=== PATIENT | male | born 1970 | race Caucasian/White ===

== ENCOUNTER 2019-04-22 19:08 | Observation (INO) ==
[2019-04-22 19:40] LABS: Basophils % 0.6 %; Eosinophils # 0.1 K/mcL (0.0-0.6); Eosinophils % 1.5 %; Hematocrit 37.2 % (37.5-50.1); Hemoglobin 11.8 g/dL (12.9-16.9); Immature Granulocytes % 0.8 % (0-4); Lymphocytes # 1.9 K/mcL (0.6-4.6); Lymphocytes % 29.4 %; Mean Corpuscular HGB Conc 31.7 g/dL (31.6-35.5); Mean Corpuscular Hemoglobin 27.2 pg (28.0-33.3); Mean Corpuscular Volume 85.7 fL (83.0-100.0); Mean Platelet Volume 11.5 fL (9.4-12.4); Monocytes # 0.5 K/mcL (0.0-1.3); Monocytes % 7.6 %; Neutrophils # 3.9 K/mcL (1.6-8.9); Platelet Count 160 K/mcL (140-400); Red Blood Count 4.34 M/mcL (4.19-5.50); Red Cell Distribution Width 15.3 % (11.5-14.5); Segmented Neutrophils % 60.1 %; White Blood Count 6.5 K/mcL (4.3-11.1)
[2019-04-22 19:58] LABS: INR 1.1; Prothrombin Time 12.9 Seconds (9.4-12.1)
[2019-04-22 20:00] LABS: Activated Partial Thrombo Time 27.5 Seconds (26.0-36.0)
[2019-04-22] MEDS ORDERED: 0.9 % Sodium Chloride 1,000 ML IVC ONE (20:01)
[2019-04-22 20:02] LABS: BUN/Creatinine Ratio 22 (6-26); Blood Urea Nitrogen 18 mg/dL (6-20); Calcium 8.5 mg/dL (8.6-10.3); Carbon Dioxide 26 mEq/L (23-29); Chloride 97 mEq/L (98-107); Glucose 402 mg/dL (70-105); Magnesium 1.6 mg/dL (1.6-2.6); Osmolality,Calculated 289 (280-300); Potassium 4.3 mEq/L (3.5-5.1); Sodium 130 mEq/L (136-145); Troponin I < 0.03 ng/mL (< 0.04); eGFR For African Americans > 60 (> 60); eGFR For Non-African Americans > 60 (> 60)
[2019-04-22] MEDS ORDERED: Nitroglycerin 0.4 MG TAB.SUBL SL PRN (20:14)
[2019-04-22] MEDS ORDERED: Aspirin 81 MG TAB.CHEW PO ONE (20:14)
[2019-04-22] MEDS ORDERED: Furosemide 40 MG/4 ML VIAL IVP ONE (20:16)
--- NOTE | 2019-04-22 20:49 | Emergency Department Note ---
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 use Diabetes mellitus complication status: with other specified complication Qualified Code(s): E11.69 - Type 2 diabetes mellitus with other specified complication Disposition: Admitted As Inpatient Time of Disposition: 20:54 Chest Pain HPI - General Chief Complaint: ED Chest Pain Stated Complaint: chest pain Time Seen by Provider: 04/22/19 19:09 Source: patient, EMS Mode of arrival: EMS Limitations: no limitations Vital Signs Reviewed: Yes Nursing Notes Reviewed: Yes - History of Present Illness HPI Narrative: 48M with PMHx of DM and HTN presents to the ER after sudden onset of chest pain at rest. Patient states he had not been feeling well for the day with some nausea and was getting ready to make himself a sandwich when he felt chest pressure all across his chest. Patient states he has felt this chest pain before and does come into the hospital. He used to be on nitroglycerin for chest pain but has been out of his prescription for a while. He is not short of breath but he did get diaphoretic with this and states the pain radiates down his left arm. He has not vomited. He has never had a heart attack before and does not think that he has undergone cardiac catheterization. He denies cough, congestion, abdominal pain, diarrhea, dysuria. Severity scale (1-10): 5 - Related Data Home Medications Medication Instructions Recorded Confirmed Aspirin [Lo-Dose Aspirin EC] 81 mg PO HS 11/05/17 07/22/18 Lisinopril [Zestril] 5 mg PO DAILY 11/05/17 07/22/18 Metformin HCl [Glucophage] 1,000 mg PO BID 11/05/17 07/22/18 Metoprolol [Lopressor] 25 mg PO BID 11/05/17 07/22/18 Omeprazole [PriLOSEC] 20 mg PO DAILY 11/05/17 07/22/18 Simvastatin [Zocor] 10 mg PO QPM 11/05/17 07/22/18 Furosemide [Lasix] 20 mg PO DAILY 02/28/18 07/22/18 Glimepiride [Amaryl] 2 mg PO BID 02/28/18 07/22/18 Naproxen 500 mg PO BID 02/28/18 07/22/18 SitaGLIPtin [Januvia] 100 mg PO DAILY 02/28/18 07/22/18 Allergies Allergy/AdvReac Type Severity Reaction Status Date / Time No Known Allergies Allergy Verified 02/05/19 14:49 All systems ED: reviewed and negative except as stated. Review of Systems: As Per HPI Constitutional: Denies: fever, chills, weakness Cardiovascular: Reports: chest pain. Denies: palpitations, dyspnea on exertion Respiratory: Denies: cough, dyspnea, wheezes Gastrointestinal: Reports: nausea. Denies: abdominal pain, vomiting Genitourinary: Denies: dysuria Musculoskeletal: Denies: back pain, neck pain Neurological: Denies: headache Endocrine: Reports: fatigue Chest Pain PMH - Past Medical History Medical history: Reports: diabetes, hypertension Psychiatric history: Reports: no psych history - Social History Smoking Status: Never smoker Alcohol use: Reports: none Drug use: Reports: none Physical Exam - General Limitations: no limitations General appearance: alert, in no apparent distress - Head Head exam: atraumatic, normocephalic - Eye Eye exam: Present: normal appearance, EOMI - Chest Chest inspection: Present: tenderness (mild tenderness to palpation over the left side of the chest ). Absent: rash - Respiratory Respiratory exam: Present: normal lung sounds bilaterally. Absent: wheezes - Cardiovascular Cardiovascular exam: Present: regular rate, normal rhythm - Abdominal Exam Abdominal exam: Present: soft, Non-Tender. Absent: distention, guarding, rebound, rigidity - Extremities Exam Extremities exam: Present: normal inspection. Absent: tenderness, pedal edema - Neurological Exam Neurological exam: Present: alert, oriented X3 - Psychiatric Psychiatric exam: Present: normal affect, normal mood - Skin Skin exam: Present: warm, dry, intact Course Vital Signs Temperature 99.8 F H 04/22/19 19:10 Pulse Rate 85 04/22/19 19:10 Respiratory Rate 18 04/22/19 19:10 Blood Pressure 190/94 04/22/19 19:10 O2 Sat by Pulse Oximetry 100 04/22/19 19:10 Temperature 99.8 F H 04/22/19 19:10 Pulse Rate 100 04/22/19 20:39 Respiratory Rate 18 04/22/19 20:39 Blood Pressure 167/105 04/22/19 20:39 O2 Sat by Pulse Oximetry 98 04/22/19 20:39 Oxygen Delivery Oxygen Delivery Room Air Chest Pain - MDM Narrative Medical decision making narrative: Pt presents with chest pain and elevated blood sugars in the 400s. We will obtain a cardiac workup and make sure the patient is not in DKA. Pt will receive nitro and aspirin. 2051 - Pts cardiac workup was negative but CXR shows some pulmonary vascular congestion. We will administer lasix and admit to the hospital for CHF exacerbation and trending of troponins. BNP has been ordered and is pending. Pt has been accepted by Dr. Alvarez. - Medical Records Medical records reviewed: Yes I reviewed the patient's medical records. - Lab Data Lab results reviewed: Yes I reviewed the patient's lab results. Result diagrams: 04/22/19 19:20 04/22/19 19:20 Lab Results 04/22/19 04/22/19 04/22/19 Range/Units 19:20 19:20 19:20 WBC 6.5 (4.3-11.1) K/mcL RBC 4.34 (4.19-5.50) M/mcL Hgb 11.8 L (12.9-16.9) g/dL Hct 37.2 L (37.5-50.1) % MCV 85.7 (83.0-100.0) fL MCH 27.2 L (28.0-33.3) pg MCHC 31.7 (31.6-35.5) g/dL RDW 15.3 H (11.5-14.5) % Plt Count 160 (140-400) K/mcL MPV 11.5 (9.4-12.4) fL Immature Gran % 0.8 (0-4) % Seg Neutrophils % 60.1 % Lymphocytes % 29.4 % Monocytes % 7.6 % Eosinophils % 1.5 % Basophils % 0.6 % Neutrophils # 3.9 (1.6-8.9) K/mcL Lymphocytes # 1.9 (0.6-4.6) K/mcL Monocytes # 0.5 (0.0-1.3) K/mcL Eosinophils # 0.1 (0.0-0.6) K/mcL Basophils # 0.0 (0.0-0.2) K/mcL PT 12.9 H (9.4-12.1) Seconds INR 1.1 APTT 27.5 (26.0-36.0) Seconds Sodium 130 L (136-145) mEq/L Potassium 4.3 (3.5-5.1) mEq/L Chloride 97 L (98-107) mEq/L Carbon Dioxide 26 (23-29) mEq/L BUN 18 (6-20) mg/dL Creatinine 0.82 (0.70-1.30) mg/dL Est GFR ( Amer) > 60 (> 60) Est GFR (Non-Af Amer) > 60 (> 60) BUN/Creatinine Ratio 22 (6-26) Glucose 402 H (70-105) mg/dL Calculated Osmolality 289 (280-300) Calcium 8.5 L (8.6-10.3) mg/dL Magnesium 1.6 (1.6-2.6) mg/dL Troponin I < 0.03 (< 0.04) ng/mL Beta-Hydroxybutyric Acd (0.02-0.27) mmol/L 04/22/19 Range/Units 19:20 WBC (4.3-11.1) K/mcL RBC (4.19-5.50) M/mcL Hgb (12.9-16.9) g/dL Hct (37.5-50.1) % MCV (83.0-100.0) fL MCH (28.0-33.3) pg MCHC (31.6-35.5) g/dL RDW (11.5-14.5) % Plt Count (140-400) K/mcL MPV (9.4-12.4) fL Immature Gran % (0-4) % Seg Neutrophils % % Lymphocytes % % Monocytes % % Eosinophils % % Basophils % % Neutrophils # (1.6-8.9) K/mcL Lymphocytes # (0.6-4.6) K/mcL Monocytes # (0.0-1.3) K/mcL Eosinophils # (0.0-0.6) K/mcL Basophils # (0.0-0.2) K/mcL PT (9.4-12.1) Seconds INR APTT (26.0-36.0) Seconds Sodium (136-145) mEq/L Potassium (3.5-5.1) mEq/L Chloride (98-107) mEq/L Carbon Dioxide (23-29) mEq/L BUN (6-20) mg/dL Creatinine (0.70-1.30) mg/dL Est GFR ( Amer) (> 60) Est GFR (Non-Af Amer) (> 60) BUN/Creatinine Ratio (6-26) Glucose (70-105) mg/dL Calculated Osmolality (280-300) Calcium (8.6-10.3) mg/dL Magnesium (1.6-2.6) mg/dL Troponin I (< 0.04) ng/mL Beta-Hydroxybutyric Acd 0.17 (0.02-0.27) mmol/L - Radiology Data Radiology results reviewed: Yes I reviewed the patient's radiology results. - EKG Data EKG attestation: Yes I reviewed and interpreted this EKG. EKG results narrative: EKG obtained at 1915 on 04/22/2019 Heart rate 87 bpm, FL interval 155, QRS duration 92, QT 358, QTC [address] segment elevations or depressions. No acute T-wave abnormalities. No significant changes when compared to previous EKG dated 02/28/2018. Heart Score - Score History: Moderately Suspicious EKG: Normal Age: 45-65 Risk Factors: Equal/Greater than 3 risk factor or history of atherosclerotic disease Troponin: Less than normal limit HEART Score Total: 4 Attestation Statement - Attestation Attestation: I, Shaun Benjamin, examined this patient and my medical decision-making was reviewed with the COOLER TENDER/PA/Advanced Practice Nurse/Resident Physician. I agree with the documented findings, disposition and treatment plan as described except to the extent set forth below. 48-year-old male presents emergency Department with concerns of acute onset chest pain. Patient states he had sternal chest pain that did not radiate. He checked his blood sugar was significantly elevated. Patient is diaphoretic during her initial evaluation emergency department. He denies history of cardiac disease. He has multiple cardiac risk factors. Patient has vascular congestion is chest x-ray.blood pressure was initially elevated. He was given nitroglycerin with improvement of his blood pressure in his pain. Chest x-ray does not show evidence of acute infiltrate however had concerns for vascular congestion. Initial troponin was negative. Patient be admitted to the [facility] pitalist for further care and evaluation.
[2019-04-22] MEDS ORDERED: Morphine Sulfate 2 MG/ML SYRINGE IVP PRN (21:16)
[2019-04-22] MEDS ORDERED: Dextrose Gel 15 GM/37.5 ML TUBE PO PRN ×2 (21:16)
[2019-04-22] MEDS ORDERED: *HR* Dextrose 50 % in Water (Syg) 50 ML SYRINGE IVP PRN (21:16)
[2019-04-22] MEDS ORDERED: D5% in Water 1,000 ML IVC PRN (21:16)
[2019-04-22] MEDS ORDERED: Ondansetron ODT 4 MG TAB.RAPDIS SL PRN (21:16)
[2019-04-22] MEDS ORDERED: Naloxone 0.4 MG/ML INJ IVP PRN (21:16)
--- NOTE | 2019-04-22 21:25 | Internal Med History&Physical ---
Date of Encounter: 04/23/19 Time of Encounter: 21:23 Internal Medicine - H&P: HPI Chief complaint: chest pain Admitted From: Home Plans for Post Hospital Care: Home History of present illness: Mr. Dunn is a 48 year old male class III obesity, type 2 diabetes, hypertension presented to the ED for chest pain. Patient reported that he was sitting watching TV when he started having sudden onset sharp pain on the left side rib and left arm continued to be constant and progressive with no alleviating or exacerbating factor associated with diaphoresis no fever, chills, nausea, vomiting,shortness of breath, abdominal pain or diarrhea. Patient denied history of [place]. Personally reviewed patient's past medical surgical family and social history. Patient negative for [place] and his direct family, no recent surgeries. Patient denied smoking, drinking or drugs. Patient reported intermittently compliant with medication and follows up with PCP for uncontrolled diabetes and hypertension. CODE STATUS was discussed and the patient to proceed with full code Past Med Surg Social Fam HX - Past Medical History Medical history: diabetes, hypertension Additional medical history: hydrocephalus Psychiatric history: no psych history - Past Surgical History Additional surgical history: R Ear Shunt-Hydropcephalus - Social History Smoking Status: Never smoker Smokeless Tobacco Status: No Alcohol use: none Drug use: none - Family History Mother Living Status: Still Living Hx Family Respiratory Disorders: Yes (COPD) Father Living Status: Cause of : bone ca Hx Family Cancer: Yes (bone) Internal Medicine - H&P: Meds Aspirin [Lo-Dose Aspirin EC] 81 mg PO HS 11/05/17 [History] Lisinopril [Zestril] 5 mg PO DAILY 11/05/17 [History] Metformin HCl [Glucophage] 1,000 mg PO BID 11/05/17 [History] Metoprolol [Lopressor] 25 mg PO BID 11/05/17 [History] Omeprazole [PriLOSEC] 20 mg PO DAILY 11/05/17 [History] Simvastatin [Zocor] 10 mg PO QPM 11/05/17 [History] Furosemide [Lasix] 20 mg PO DAILY 02/28/18 [History] Glimepiride [Amaryl] 2 mg PO DAILY 02/28/18 [History] Naproxen 500 mg PO BID 02/28/18 [History] SitaGLIPtin [Januvia] 100 mg PO DAILY 02/28/18 [History] Allergy/AdvReac Type Severity Reaction Status Date / Time No Known Allergies Allergy Verified 02/05/19 14:49 All Systems PM: A 10-system review of systems was performed and is negative for pertinent findings except as documented above in the HPI. - Constitutional Vitals: Temp Pulse Resp BP Pulse Ox 99.8 F H 100 18 167/105 98 04/22/19 19:10 04/22/19 20:39 04/22/19 20:39 04/22/19 20:39 04/22/19 20:39 Exam: General Appearance: Appearing as age, well-nourished in mild acute distress. Head: Atraumatic normocephalic Skin: Normal texture, normal turgor, warm, dry. Eyes: Conjunctivae not pale with no erythema, drainage, or ulcers. Anicteric. Neck: No Lymphadenopathy in the anterior/posterior cervical chain. No thyromegaly, masses or ulcers. Trachea midline. Heart: RRR, no murmurs. Capillary refill 3 seconds. chest non reproducible. Points mostly to the left rib. Lungs: No accessory muscle usage, lungs clear to auscultation bilaterally, no wheezes or crackles. Extremities: No pitting edema, No clubbing, No cyanosis. Abdomen: Non-distended, normoactive bowel sounds. non-tender to palpation, no hepatomegally. No guarding. Neuro: AOx3 with no new sensory loss or focal deficits. MSK: Strength 5/5 Upper extremity equal bilaterally. Strength 5/5 Lower extremity equal bilaterally Internal Med - H&P Results - Labs CBC & Chem 7: 04/23/19 03:39 04/23/19 03:39 Labs: Short CBC 04/22/19 Range/Units 19:20 WBC 6.5 (4.3-11.1) K/mcL Hgb 11.8 L (12.9-16.9) g/dL Hct 37.2 L (37.5-50.1) % Plt Count 160 (140-400) K/mcL Neutrophils # 3.9 (1.6-8.9) K/mcL BMP 04/22/19 19:20 Sodium 130 L Potassium 4.3 Chloride 97 L Carbon Dioxide 26 BUN 18 Creatinine 0.82 Glucose 402 H Calcium 8.5 L Cardiac Enzymes 04/22/19 Range/Units 19:20 Troponin I < 0.03 (< 0.04) ng/mL - Impressions ITS Impressions Chest X-Ray 04/22/19 19:13 IMPRESSION: No radiographic evidence of acute cardiopulmonary disease. D/ / Salvador Fleming / Salvador Fleming Interpreting Provider: Salvador Fleming - Summary of Assessment and Plan Summary of Assessment and Plan: 1.Non-Anginal Chest pain: 1/3(Substernal/Alleviated with rest/Worsened with exertion) CHAS Score: 0 BB, Nitro, high intensity statin, Oxygen, and ASA. Stress Test: Nuclear Stress Test Troponin, EKG q6hour, Cardiac monitoring. 2. Normocytic anemia: No signs of bleeding. Reticulocyte count orderred. 3. Type 2 diabetes uncontrolled A1c ordered, insulin sliding scale. 4. Hypoglycemia: Replaced Chronic medical conditions: DVT prophylaxis: Heparin Disposition: Likely less than 2 day stay. - Time Spent With Patient Total time spent is greater than 36 minutes 50% in coordination of care (as documented) at patient's floor/unit and/or counseling patient: Greater than 35 minutes
[2019-04-22] MEDS ORDERED: Ringers Solution, Lactated 1,000 ML IVC SCH (21:30)
[2019-04-22] MEDS: *HR* Heparin 5,000 UNIT/ML VIAL SQ SCH (23:17)
[2019-04-22 23:28] LABS: Estimated Average Glucose 226 mg/dl
[2019-04-22] MEDS: Insulin LISPRO 300 UNITS/3 ML VIAL SQ SCH (23:36)
[2019-04-23 04:31] LABS: Hematocrit 35.4 % (37.5-50.1); Hemoglobin 11.4 g/dL (12.9-16.9); Immature Reticulocyte % 28.6 % (11.0-38.0); Mean Corpuscular HGB Conc 32.2 g/dL (31.6-35.5); Mean Corpuscular Hemoglobin 27.2 pg (28.0-33.3); Mean Corpuscular Volume 84.5 fL (83.0-100.0); Mean Platelet Volume 11.9 fL (9.4-12.4); Platelet Count 162 K/mcL (140-400); Red Blood Count 4.19 M/mcL (4.19-5.50); Red Cell Distribution Width 15.4 % (11.5-14.5); Retculocyte # 0.13 M/mcL (0.05-0.10); Reticulocyte % 3.1 % (1.6-2.8); White Blood Count 6.9 K/mcL (4.3-11.1)
[2019-04-23 04:51] LABS: INR 1.1
[2019-04-23 04:56] LABS: % Iron Saturation 10 % (20-55); Alanine Aminotransferase 78 Units/L (7-52); Albumin 3.4 g/dL (3.5-5.7); Albumin/Globulin Ratio 1.1 (1.1-2.2); Alkaline Phosphatase 73 Units/L (34-104); Aspartate Amino Transferase 79 Units/L (13-39); BUN/Creatinine Ratio 22 (6-26); Bilirubin,Total 0.3 mg/dL (0.3-1.0); Blood Urea Nitrogen 17 mg/dL (6-20); Calcium 8.2 mg/dL (8.6-10.3); Carbon Dioxide 26 mEq/L (23-29); Chloride 99 mEq/L (98-107); Chol/HDL Ratio 5.1 (0-4.9); Cholesterol 168 mg/dL (< 200); Globulin 3.2 g/dL (2.4-3.5); Glucose 246 mg/dL (70-105); HDL Cholesterol 33 mg/dL (40-59); Iron 32 mcg/dL (65-175); LDL Cholesterol,Calculated 67 mg/dL (0-99); Magnesium 1.6 mg/dL (1.6-2.6); Osmolality,Calculated 286 (280-300); Phosphorous 3.6 mg/dL (2.7-4.5); Sodium 133 mEq/L (136-145); Total Protein 6.6 g/dL (6.4-8.9); Transferrin 218 mg/dL (203-362); Triglycerides 338 mg/dL (< 150); eGFR For African Americans > 60 (> 60); eGFR For Non-African Americans > 60 (> 60)
[2019-04-23 05:06] LABS: Ferritin 113 ng/mL (20-250)
[2019-04-23 05:11] LABS: Folate 9.5 ng/mL (3.0-16.0)
[2019-04-23] MEDS: *HR* Heparin 5,000 UNIT/ML VIAL SQ SCH ×3 (05:19→20:24)
[2019-04-23 05:44] LABS: Amphetamine Screen,Urine Negative ng/mL (Cutoff=1000); Barbiturate Screen,Urine Negative ng/mL (Cutoff=200)
[2019-04-23 05:45] LABS: Benzodiazepines Screen,Urine Negative ng/mL (Cutoff=300); Cannabinoid Screen,Urine Positive ng/mL (Cutoff = 50); Cocaine Screen,Urine Negative ng/mL (Cutoff= 300); Opiate Screen,Urine Negative ng/mL (Cutoff=300); Phencyclidine Screen,Urine Negative ng/mL (Cutoff=25)
[2019-04-23 05:48] LABS: Bilirubin,Urine Negative (Negative); Blood,Urine Trace (Negative); Clarity,Urine Clear (Clear); Color,Urine Yellow (Yellow); Glucose,Urine (UA) 500 mg/dL (Normal); Ketones,Urine Negative (Negative); Leukocyte Esterase,Urine Negative (Negative); Nitrite,Urine Negative (Negative); Protein,Urine Trace mg/dL (Neg-Trace); Specific Gravity,Urine 1.023 (1.010-1.025); Urobilinogen,Urine Normal (Normal)
[2019-04-23 05:51] LABS: Bacteria,Urine None Seen per hpf (None-Few); Hyaline Casts,Urine None Seen per lpf (None-Few); Squamous Epithelial Cell,Urine Few per lpf (None-Few); WBC,Urine 0-3 per hpf (0-3)
[2019-04-23] MEDS ORDERED: Regadenoson 0.4 MG/5 ML SYRINGE IVP ONE (05:59)
[2019-04-23] MEDS: Insulin LISPRO 300 UNITS/3 ML VIAL SQ SCH ×3 (10:23→17:08)
--- NOTE | 2019-04-23 13:45 | Internal Med Progress Note ---
Hospitalist Progress Note - Encounter Date of Encounter: 04/23/19 Time of Encounter: 11:30 - Subjective Interval History: Mr. Dunn is a 48 year old male with moderate obesity, type 2 diabetes, hypertension and HLD pt presented to the ED for chest pain. Patient reported that he was sitting watching TV when he started having sudden onset sharp pain on the left side rib and left arm. He was admitted in the hospital and placed him on nurse monitoring. His serial troponin came back as negative. He denied any more CP / SOB. - Exam Vitals: Temp Pulse Resp BP Pulse Ox 97.6 F 85 16 123/82 95 04/23/19 10:15 04/23/19 10:15 04/23/19 10:15 04/23/19 10:15 04/23/19 10:15 Exam: Gen: Alert, awake, Oriented to time,place and person Chest: Diminished breath sounds B/L, No wheezing, No crackles, No rales Heart: S1S2+ RRR No murmurs Abd: Soft, NT, BS +, No organomegaly Ext: No edema, pulses are palpable, No calf tenderness Neuro : No acute focal neuro deficits noticed Skin: No rash. - Assessment and Plan (1) Chest pain Current Visit: Yes Status: Acute Assessment and Plan: Serial troponin came back as negative EKG did not show any acute ischemic changes Since he is high risk for ACS.. scheduled for nuclear stress test He does need 2 days stress test cont ASA, Lipitor, and Metoprolol (2) Diabetes Current Visit: Yes Status: Acute Assessment and Plan: on ADA diet on ISS (3) Hypertension Current Visit: No Status: Acute Assessment and Plan: Stable blood pressure with current home medications (4) DVT prophylaxis Current Visit: No Status: Acute Assessment and Plan: on SQ heparin (5) Morbid obesity with BMI of 60.0-69.9, adult Current Visit: Yes Status: Acute Assessment and Plan: counseled to loose weight. - Time Spent with Patient Total time spent is greater than 50% in coordination of care (as documented) at patient's floor/unit and/or counseling patient: Internal Medicine: Result - Labs CBC & Chem 7: 04/23/19 03:39 04/23/19 03:39 Labs: Short CBC 04/22/19 04/23/19 Range/Units 19:20 03:39 WBC 6.5 6.9 (4.3-11.1) K/mcL Hgb 11.8 L 11.4 L (12.9-16.9) g/dL Hct 37.2 L 35.4 L (37.5-50.1) % Plt Count 160 162 (140-400) K/mcL Neutrophils # 3.9 (1.6-8.9) K/mcL BMP 04/22/19 04/23/19 19:20 03:39 Sodium 130 L 133 L Potassium 4.3 4.0 Chloride 97 L 99 Carbon Dioxide 26 26 BUN 18 17 Creatinine 0.82 0.79 Glucose 402 H 246 H Calcium 8.5 L 8.2 L Cardiac Enzymes 04/22/19 04/22/19 04/23/19 Range/Units 19:20 22:56 03:39 Troponin I < 0.03 < 0.03 < 0.03 (< 0.04) ng/mL 04/23/19 Range/Units 09:34 Troponin I < 0.03 (< 0.04) ng/mL Liver Function 04/23/19 Range/Units 03:39 Total Bilirubin 0.3 (0.3-1.0) mg/dL AST 79 H (13-39) Units/L ALT 78 H (7-52) Units/L Alkaline Phosphatase 73 (34-104) Units/L Albumin 3.4 L (3.5-5.7) g/dL Urine 04/23/19 Range/Units 05:25 Urine Color Yellow (Yellow) Urine Clarity Clear (Clear) Urine pH 6.0 (5.0-8.0) pH Units Ur Specific [place] 1.023 (1.010-1.025) Urine Protein Trace (Neg-Trace) mg/dL Urine Glucose (UA) 500 H (Normal) mg/dL - ABG Interpretation ABG results: PT/INR, D-dimer PT 13.0 Seconds (9.4-12.1) H 04/23/19 03:39 - Impressions Impressions Chest X-Ray 04/22/19 19:13 IMPRESSION: No radiographic evidence of acute cardiopulmonary disease. 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
--- NOTE | 2019-04-23 15:15 | Electrocardiograph Report ---
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
[2019-04-23] MEDS ORDERED: Aspirin Enteric Coated 81 MG Tablet PO SCH (21:00)
[2019-04-24] MEDS: *HR* Heparin 5,000 UNIT/ML VIAL SQ SCH (05:30)
[2019-04-24] MEDS: Insulin LISPRO 300 UNITS/3 ML VIAL SQ SCH ×2 (08:57→12:00)
[2019-04-24 11:33] VITALS: BP 131/94
--- NOTE | 2019-04-24 14:03 | Discharge Summary ---
- NOTES TO OUTPATIENT PROVIDER Notes to Outpatient Provider: Follow up with PCP in one week. Date of Encounter: 04/24/19 Time of Encounter: 14:00 - Discharge Diagnosis (1) Chest pain Priority: Primary Status: Acute Qualifiers: Chest pain type: unspecified Qualified Code(s): R07.9 - Chest pain, unspecified (2) Diabetes Priority: Secondary Status: Acute Qualifiers: Diabetes mellitus type: type 2 Diabetes mellitus senior living insulin use: with senior living use Diabetes mellitus complication status: with other specified complication Qualified Code(s): E11.69 - Type 2 diabetes mellitus with other specified complication; Z79.4 - snf (current) use of insulin (3) Hypertension Priority: Secondary Status: Acute Qualifiers: Hypertension type: essential hypertension Qualified Code(s): I10 - Essential (primary) hypertension (4) DVT prophylaxis Priority: Secondary Status: Acute (5) Morbid obesity with BMI of 60.0-69.9, adult Priority: Secondary Status: Acute Hospital course: Mr. Dunn is a 48 year old male with moderate obesity, type 2 diabetes, hypertension and HLD pt presented to the ED for chest pain. Patient reported that he was sitting watching TV when he started having sudden onset sharp pain on the left side rib and left arm. He was admitted in the hospital and placed him on mold carrier. His serial troponin came back as negative. He denied any more CP / SOB. His EKG did not show any acute ischemic changes. Since he is high risk for ACS, he did go for nuclear stress test. His nuclear stress test Perfusion imaging was negative for ischemia or infarct. Will discharge him home in a stable condition today - Time Spent with Patient Total time spent providing and/or coordinating discharge services: - Discharge Medications Prescriptions: Continued Simvastatin [Zocor] 10 mg PO QPM Metformin HCl [Glucophage] 1,000 mg PO 0800,1700 Aspirin [Lo-Dose Aspirin EC] 81 mg PO HS Omeprazole [PriLOSEC] 20 mg PO QAM Lisinopril [Zestril] 5 mg PO QAM Metoprolol [Lopressor] 25 mg PO BID Furosemide [Lasix] 20 mg PO QAM Glimepiride [Amaryl] 2 mg PO QAM Naproxen 500 mg PO DAILY SitaGLIPtin [Januvia] 100 mg PO QAM Home Medications: Aspirin [Lo-Dose Aspirin EC] 81 mg PO HS 11/05/17 [History] Lisinopril [Zestril] 5 mg PO QAM 11/05/17 [History] Metformin HCl [Glucophage] 1,000 mg PO 0800,1700 11/05/17 [History] Metoprolol [Lopressor] 25 mg PO BID 11/05/17 [History] Omeprazole [PriLOSEC] 20 mg PO QAM 11/05/17 [History] Simvastatin [Zocor] 10 mg PO QPM 11/05/17 [History] Furosemide [Lasix] 20 mg PO QAM 02/28/18 [History] Glimepiride [Amaryl] 2 mg PO QAM 02/28/18 [History] Naproxen 500 mg PO DAILY 02/28/18 [History] SitaGLIPtin [Januvia] 100 mg PO QAM 02/28/18 [History] Allergies/Adverse Reactions: Allergy/AdvReac Type Severity Reaction Status Date / Time No Known Allergies Allergy Verified 04/23/19 13:45 Date of admission: 04/22/19 20:52 Primary care physician: Shaun Matias MD - Constitutional Vitals: Temp Pulse Resp BP Pulse Ox 97.6 F 99 17 131/94 99 04/24/19 11:28 04/24/19 11:28 04/24/19 11:28 04/24/19 11:28 04/24/19 11:28 General appearance: Present: A&O X 3, no acute distress, answers questions appropriately Exam: Gen: Alert, awake, Oriented to time,place and person Chest: Diminished breath sounds B/L, No wheezing, No crackles, No rales Heart: S1S2+ RRR No murmurs Abd: Soft, NT, BS +, No organomegaly Ext: No edema, pulses are palpable, No calf tenderness Neuro : No acute focal neuro deficits noticed Skin: No rash. - Patient Status Disposition: Home, Self-Care Condition: Good Overall status at discharge: patient is back to baseline - Discharge Instructions Follow Up With: Shaun Matias MD [Primary Care Provider] - 04/28/19 2:30 pm - Diet and Activity Activity: increase activity as tolerated Diet: low salt diet
--- NOTE | 2019-04-24 17:55 | Electrocardiograph Report ---
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
== END 2019-04-24 15:06 | disposition home or self-care (01) ==
LOC: EMEROOARM 19:08 → 3BNU 19:08 → SUATTDRO 20:52 → 3BNU 21:33
PROVIDERS: ADMIT Internal Medicine; ATTEND Family Medicine

== ENCOUNTER 2019-09-03 15:02 | Observation (INO) ==
[2019-09-03 15:38] LABS: Basophils # 0.1 K/mcL (0.0-0.2); Basophils % 0.8 %; Eosinophils # 0.1 K/mcL (0.0-0.6); Eosinophils % 0.8 %; Hemoglobin 12.8 g/dL (12.9-16.9); Immature Granulocytes % 0.4 % (0-4); Immature Platelets 6.7 % (1.1-6.1); Lymphocytes # 2.5 K/mcL (0.6-4.6); Lymphocytes % 32.6 %; Mean Corpuscular Hemoglobin 27.1 pg (28.0-33.3); Mean Corpuscular Volume 84.6 fL (83.0-100.0); Mean Platelet Volume 11.4 fL (9.4-12.4); Monocytes # 0.7 K/mcL (0.0-1.3); Monocytes % 9.2 %; Neutrophils # 4.2 K/mcL (1.6-8.9); Platelet Count 217 K/mcL (140-400); Red Blood Count 4.73 M/mcL (4.19-5.50); Red Cell Distribution Width 14.8 % (11.5-14.5); Segmented Neutrophils % 56.2 %; White Blood Count 7.5 K/mcL (4.3-11.1)
[2019-09-03] MEDS ORDERED: Morphine Sulfate 2 MG/ML SYRINGE IVP ONE (15:51)
[2019-09-03] MEDS ORDERED: Ondansetron 4 MG/2 ML VIAL IVP ONE (15:52)
[2019-09-03 15:55] LABS: Albumin 4.1 g/dL (3.5-5.7); Albumin/Globulin Ratio 1.1 (1.1-2.2); Bilirubin,Direct 0.1 mg/dL (0.0-0.2); Bilirubin,Indirect 0.4 mg/dL (0.0-1.0); Bilirubin,Total 0.5 mg/dL (0.3-1.0); Globulin 3.6 g/dL (2.4-3.5); Total Protein 7.7 g/dL (6.4-8.9)
[2019-09-03 16:04] LABS: BUN/Creatinine Ratio 15 (6-26); Blood Urea Nitrogen 13 mg/dL (6-20); Calcium 9.4 mg/dL (8.6-10.3); Carbon Dioxide 27 mEq/L (23-29); Chloride 98 mEq/L (98-107); Glucose 142 mg/dL (70-105); Osmolality,Calculated 279 (280-300); Sodium 133 mEq/L (136-145); eGFR For African Americans > 60 (> 60); eGFR For Non-African Americans > 60 (> 60)
[2019-09-03] MEDS ORDERED: Isovue-370 500 ML BOTTLE IVP ONE (16:06)
[2019-09-03 16:50] LABS: Bacteria,Urine None Seen per hpf (None-Few); Bilirubin,Urine Negative (Negative); Blood,Urine Moderate (Negative); Clarity,Urine Clear (Clear); Color,Urine Yellow (Yellow); Glucose,Urine (UA) Normal (Normal); Hyaline Casts,Urine None Seen per lpf (None-Few); Ketones,Urine Negative (Negative); Leukocyte Esterase,Urine Negative (Negative); Nitrite,Urine Negative (Negative); PH,Urine 6.5 pH Units (5.0-8.0); Protein,Urine 100 mg/dL (Neg-Trace); RBC,Urine 30-50 per hpf (0-3); Specific Gravity,Urine 1.023 (1.010-1.025); Squamous Epithelial Cell,Urine Moderate per lpf (None-Few); Urobilinogen,Urine Normal (Normal); WBC,Urine 0-3 per hpf (0-3)
[2019-09-03] MEDS ORDERED: Ondansetron 4 MG/2 ML VIAL IVP PRN (18:51)
[2019-09-03] MEDS ORDERED: Naloxone 0.4 MG/ML INJ IVP PRN (18:51)
[2019-09-03] MEDS ORDERED: Ringers Solution, Lactated 1,000 ML IVC SCH (19:00)
[2019-09-03] MEDS ORDERED: Dextrose Gel 15 GM/37.5 ML TUBE PO PRN ×2 (20:54)
[2019-09-03] MEDS ORDERED: D5% in Water 1,000 ML IVC PRN (20:54)
[2019-09-03] MEDS ORDERED: *HR* Dextrose 50 % in Water (Syg) 50 ML SYRINGE IVP PRN (20:54)
[2019-09-03 20:55] LABS: Amylase 120 Units/L (29-103)
[2019-09-03] MEDS ORDERED: Aspirin Enteric Coated 81 MG Tablet PO SCH (21:00)
[2019-09-03] MEDS: *HR* Heparin 5,000 UNIT/ML VIAL SQ SCH (22:02)
[2019-09-04] MEDS: Insulin LISPRO 300 UNITS/3 ML VIAL SQ SCH ×2 (00:14→06:40)
[2019-09-04] MEDS ORDERED: Ringers Solution, Lactated 1,000 ML IVC SCH (00:29)
[2019-09-04 05:21] LABS: Basophils % 0.5 %; Eosinophils # 0.1 K/mcL (0.0-0.6); Eosinophils % 1.5 %; Hematocrit 38.9 % (37.5-50.1); Hemoglobin 12.3 g/dL (12.9-16.9); Immature Granulocytes % 0.5 % (0-4); Lymphocytes # 2.6 K/mcL (0.6-4.6); Lymphocytes % 35.1 %; Mean Corpuscular HGB Conc 31.6 g/dL (31.6-35.5); Mean Corpuscular Hemoglobin 27.2 pg (28.0-33.3); Mean Corpuscular Volume 85.9 fL (83.0-100.0); Mean Platelet Volume 11.1 fL (9.4-12.4); Monocytes # 0.6 K/mcL (0.0-1.3); Monocytes % 8.2 %; Platelet Count 173 K/mcL (140-400); Red Blood Count 4.53 M/mcL (4.19-5.50); Red Cell Distribution Width 15.2 % (11.5-14.5); Segmented Neutrophils % 54.2 %; White Blood Count 7.4 K/mcL (4.3-11.1)
[2019-09-04 05:24] LABS: INR 1.3; Prothrombin Time 15.1 Seconds (9.4-12.1)
[2019-09-04 05:27] LABS: Activated Partial Thrombo Time 29.6 Seconds (26.0-36.0)
[2019-09-04 05:38] LABS: Alanine Aminotransferase 88 Units/L (7-52); Albumin 3.6 g/dL (3.5-5.7); Albumin/Globulin Ratio 1.1 (1.1-2.2); Alkaline Phosphatase 50 Units/L (34-104); Aspartate Amino Transferase 73 Units/L (13-39); BUN/Creatinine Ratio 18 (6-26); Bilirubin,Total 0.6 mg/dL (0.3-1.0); Blood Urea Nitrogen 14 mg/dL (6-20); Carbon Dioxide 26 mEq/L (23-29); Chloride 99 mEq/L (98-107); Chol/HDL Ratio 4.8 (0-4.9); Cholesterol 160 mg/dL (< 200); Globulin 3.3 g/dL (2.4-3.5); Glucose 148 mg/dL (70-105); HDL Cholesterol 33 mg/dL (40-59); LDL Cholesterol,Calculated 92 mg/dL (0-99); Osmolality,Calculated 279 (280-300); Potassium 3.6 mEq/L (3.5-5.1); Sodium 133 mEq/L (136-145); Total Protein 6.9 g/dL (6.4-8.9); Triglycerides 174 mg/dL (< 150); eGFR For African Americans > 60 (> 60); eGFR For Non-African Americans > 60 (> 60)
[2019-09-04] MEDS: *HR* Heparin 5,000 UNIT/ML VIAL SQ SCH (06:40)
[2019-09-04] MEDS ORDERED: Furosemide 20 MG TABLET PO SCH (09:00)
[2019-09-04 11:03] VITALS: BP 151/85
[2019-09-04 12:19] LABS: Magnesium 1.5 mg/dL (1.6-2.6); Phosphorous 4.2 mg/dL (2.7-4.5)
[2019-09-04 13:05] LABS: Estimated Average Glucose 192 mg/dl
[2019-09-04 13:38] LABS: Hepatitis B Surface Antigen Nonreactive (Nonreactive)
[2019-09-04 14:11] LABS: Hepatitis A Antibody IgM Nonreactive (Nonreactive)
[2019-09-04 14:12] LABS: Hepatitis B Core IgM Nonreactive (Nonreactive)
[2019-09-04 14:13] LABS: Hepatitis C Virus Antibody Nonreactive (Nonreactive)
== END 2019-09-04 15:18 | disposition home or self-care (01) ==
LOC: EMEROOARM 15:02 → 3ANU 15:02 → SUATTDRO 20:16 → 3ANU 21:09
PROVIDERS: ADMIT Internal Medicine; ATTEND Internal Medicine